=== PATIENT | female | born 1965 | race Caucasian/White ===

== ENCOUNTER 2022-03-15 05:43 | Inpatient (IN) | payer BC ==
[~2022-03-15 05:43] MED LIST: Acetaminophen 500 MG Tab PO ONE; Celecoxib 200 MG Cap PO ONE; Scopolamine 1.5 MG Transdermal Patch TOP SCH
[2022-03-15] MEDS ORDERED: Dextrose 5%-Lactated Ringers 1,000 ML IV SCH ×2 (06:00→10:45)
[2022-03-15] MEDS ORDERED: cefOXitin 2 GM Vial ONE (06:56)
[2022-03-15] MEDS ORDERED: fentaNYL 250 MCG/5 ML SDV ONE (07:11)
[2022-03-15] MEDS ORDERED: Ondansetron 4 MG/2 ML SDV ONE (07:12)
[2022-03-15] MEDS ORDERED: Dexamethasone 4 MG/ML SDV ONE (07:12)
[2022-03-15] MEDS ORDERED: Neostigmine Methylsulfate 1 MG/ML 5 ML Syringe ONE (07:12)
[2022-03-15] MEDS ORDERED: Rocuronium 50 MG/5 ML Vial ONE ×2 (07:12→07:54)
[2022-03-15] MEDS ORDERED: Succinylcholine 200 MG/10 ML MDV ONE (07:12)
[2022-03-15] MEDS ORDERED: Glycopyrrolate 0.2 MG/ML 5 ML MDV ONE (07:12)
[2022-03-15] MEDS ORDERED: Propofol 200 MG/20 ML SDV ONE (07:12)
[2022-03-15] MEDS ORDERED: cefOXitin 2 GM in Sodium Chloride 0.9% 50 ML IV ONE (07:15)
[2022-03-15] MEDS ORDERED: Ketamine 16 MG in Sodium Chloride 0.9% 19.84 ML IV SCH (07:30)
[2022-03-15] MEDS ORDERED: Ketamine 500 MG/5 ML MDV IV SCH (07:30)
[2022-03-15] MEDS ORDERED: Glucagon,Human Recombinant 1 MG Vial ONE (08:09)
[2022-03-15] MEDS ORDERED: Lactated Ringers 1,000 ML ONE (08:11)
[2022-03-15] MEDS ORDERED: fentaNYL 100 MCG/2 ML SDV ONE (08:22)
[2022-03-15] MEDS ORDERED: Sugammadex Sodium 200 MG/2 ML VIAL ONE (08:38)
[2022-03-15] MEDS ORDERED: Ondansetron 4 MG/2 ML SDV IVPUSH ONE (08:58)
[2022-03-15] MEDS ORDERED: hydrOXYzine HCL 100 MG/2 ML SDV IM ONE (08:59)
[2022-03-15] MEDS ORDERED: Metoclopramide 10 MG/2 ML SDV IVPUSH ONE (08:59)
[2022-03-15] MEDS ORDERED: Glucagon,Human Recombinant 1 MG Vial IM PRN ×2 (09:16→11:00)
[2022-03-15] MEDS ORDERED: 50% Dextrose in Water 50 ML Syringe IVPUSH PRN ×2 (09:16→11:00)
[2022-03-15] MEDS ORDERED: Insulin Lispro 100 Unit/ML 3 ML KwikPen SUBCUT ONE (09:30)
[2022-03-15] MEDS ORDERED: HYDROmorphone 1 MG/ML Syringe IV ONE (10:30)
[2022-03-15] MEDS ORDERED: Cyclobenzaprine 10 MG Tab PO PRN (10:38)
[2022-03-15] MEDS ORDERED: diphenhydrAMINE 50 MG/ML SDV IVPUSH PRN (11:00)
[2022-03-15] MEDS ORDERED: HYDROmorphone 0.5 MG/0.5 ML Syringe IVPUSH PRN (11:00)
[2022-03-15] MEDS ORDERED: oxyCODONE 5 MG Tab PO PRN (11:00)
[2022-03-15] MEDS ORDERED: Metoclopramide 10 MG/2 ML SDV IVPUSH PRN (11:00)
[2022-03-15] MEDS ORDERED: Labetalol 20 MG/4 ML Syringe IVPUSH PRN (11:00)
[2022-03-15] MEDS ORDERED: hydrOXYzine HCL 100 MG/2 ML SDV IM PRN (11:00)
[2022-03-15] MEDS ORDERED: HYDROmorphone 1 MG/ML Syringe IV PRN (11:00)
[2022-03-15] MEDS ORDERED: Ondansetron 4 MG/2 ML SDV IVPUSH PRN (11:00)
[2022-03-15] MEDS ORDERED: Acetaminophen 500 MG Tab PO PRN (11:00)
[2022-03-15] MEDS: Lactated Ringers 1,000 ML IV SCH (11:20)
[2022-03-15] MEDS: Acetaminophen 500 MG Tab PO SCH ×2 (13:30→22:18)
[2022-03-15] MEDS: cefOXitin 2 GM in Sodium Chloride 0.9% 50 ML IV SCH ×2 (13:32→19:34)
[2022-03-15] MEDS ORDERED: Pantoprazole 40 MG Vial IVPUSH SCH (14:00)
[2022-03-15] MEDS ORDERED: MVI, Adult with Vitamin K 10 ML, Thiamine 200 MG, Zinc/Copper/Manganese/Selenium 1 ML i... IV SCH ×4 (16:00)
[2022-03-15] MEDS: Insulin Lispro 100 Unit/ML 3 ML KwikPen SUBCUT SCH ×2 (16:44→22:11)
[2022-03-15] MEDS: Heparin Sodium 5,000 Units/ML Vial SUBCUT SCH (16:44)
[2022-03-15] MEDS: traMADol 50 MG Tab PO PRN (22:19)
[2022-03-16] MEDS: Lactated Ringers 1,000 ML IV SCH ×2 (01:15→10:08)
[2022-03-16] MEDS: cefOXitin 2 GM in Sodium Chloride 0.9% 50 ML IV SCH ×4 (01:15→19:23)
[2022-03-16] MEDS: Insulin Lispro 100 Unit/ML 3 ML KwikPen SUBCUT SCH ×2 (04:14→10:05)
[2022-03-16] MEDS ORDERED: Iopamidol 612 MG/ML 50 ML SDV PO ONE (04:45)
[2022-03-16] MEDS: Heparin Sodium 5,000 Units/ML Vial SUBCUT SCH ×2 (04:46→15:34)
[2022-03-16] MEDS: traMADol 50 MG Tab PO PRN ×3 (04:49→18:34)
[2022-03-16] MEDS: Acetaminophen 500 MG Tab PO SCH ×3 (06:27→21:34)
[2022-03-16] MEDS: Lisinopril 20 MG Tab PO SCH (09:56)
[2022-03-16] MEDS: Celecoxib 200 MG Cap PO SCH ×2 (09:56→21:35)
[2022-03-16] MEDS: SCOPOLAMINE PATCH CHECK TOP SCH (10:05)
[2022-03-16] MEDS: Magnesium Sulfate/Water 2 GM in Premix Bag 1 BAG IV SCH ×3 (10:05→21:35)
[2022-03-16] MEDS ORDERED: MVI, Adult with Vitamin K 10 ML, Thiamine 200 MG, Zinc/Copper/Manganese/Selenium 1 ML i... IV SCH ×4 (16:00)
[2022-03-16] MEDS ORDERED: Pantoprazole 40 MG Tab.CR PO SCH (16:30)
[2022-03-17] MEDS: Lactated Ringers 1,000 ML IV SCH (01:42)
[2022-03-17] MEDS: Heparin Sodium 5,000 Units/ML Vial SUBCUT SCH (03:50)
[2022-03-17] MEDS: Magnesium Sulfate/Water 2 GM in Premix Bag 1 BAG IV SCH ×2 (03:51→09:06)
[2022-03-17] MEDS: Acetaminophen 500 MG Tab PO SCH (05:57)
[2022-03-17] MEDS ORDERED: Cyanocobalamin (Vitamin B12) 1,000 MCG/ML SDV IM ONE (09:00)
[2022-03-17] MEDS: Celecoxib 200 MG Cap PO SCH (09:10)
[2022-03-17] MEDS: Lisinopril 20 MG Tab PO SCH (09:11)
[2022-03-17] MEDS: SCOPOLAMINE PATCH CHECK TOP SCH (09:12)
[2022-03-17] MEDS ORDERED: Magnesium Hydroxide 400 MG/5 ML Susp 30 ML Cup PO PRN (09:18)
[2022-03-17] MEDS: traMADol 50 MG Tab PO PRN (09:25)
== END 2022-03-17 12:00 | disposition home or self-care (01) | DRG 403 ==
LOC: JP.SDS 05:43 → JP.MS 05:43 → JP.2SS 08:55 → EDSTATUS 09:45
PROVIDERS: ADMIT Surgery; ATTEND Surgery
PROC: 0DB64Z3 Excision of Stomach, Percutaneous Endoscopic Approach, Vertical (ICD-10-PCS; principal; 2022-03-15)
PROC: 0FB24ZX Excision of Left Lobe Liver, Percutaneous Endoscopic Approach, Diagnostic (ICD-10-PCS; 2022-03-15)
PROC: 0BQT4ZZ Repair Diaphragm, Percutaneous Endoscopic Approach (ICD-10-PCS; 2022-03-15)
DX: E66.01 Morbid (severe) obesity due to excess calories (principal); R16.0 Hepatomegaly, not elsewhere classified; K44.9 Diaphragmatic hernia without obstruction or gangrene; I10 Essential (primary) hypertension; E11.9 Type 2 diabetes mellitus without complications; G47.33 Obstructive sleep apnea (adult) (pediatric); E78.5 Hyperlipidemia, unspecified; F32.A Depression, unspecified; Z68.43 Body mass index [BMI] 50.0-59.9, adult; Z91.040 Latex allergy status; Z79.84 Long term (current) use of oral hypoglycemic drugs; Z79.899 Other long term (current) drug therapy
CPT/HCPCS: 36415; 74240; 74240-26; 81025; 82947; 83735; 84100; 85027; 86850; 86900; 86901; A9270-GY; C9113; J0171; J0330; J0694; J1100; J1170; J1610; J1644; J1815; J2405; J2704; J2710; J2765; J2795; J3010; J3410; J3411; J3420; J3475; J3490; J7120; J7121; Q9967